=== PATIENT | female | born 2000 ===

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

== ENCOUNTER 2022-06-15 20:28 | Emergency (ER) | payer MEDICAID, OTHER ==
[~2022-06-15] VITALS: Ht 162.6 cm; Wt 76.0 kg
[2022-06-15 21:10] VITALS: BP 133/92
[2022-06-15 21:42] LABS: Urine Bacteria FEW /hpf (None Seen); Urine Blood Negative /uL (Negative); Urine Specific Gravity 1.005 (1.001-1.035); Urine WBC 15 /hpf (0 - 5)
[2022-06-16] MEDS ORDERED: DOXY-340 PO (02:54)
[2022-06-16] MEDS ORDERED: cefTRIAXone SOD 1,000 MG VL IM ONE (03:00)
== END 2022-06-16 04:03 | disposition home or self-care (01) ==
LOC: ER 20:28
DX: N89.8 Other specified noninflammatory disorders of vagina (principal); N39.0 Urinary tract infection, site not specified; Z20.2 Contact with and (suspected) exposure to infections with a predominantly sexual mode of transmission; Z79.2 Long term (current) use of antibiotics
CPT/HCPCS: 81001; 81025; 99283; J0696